=== PATIENT | female | born 1975 | race Hispanic/Latino ===

== ENCOUNTER 2019-08-19 13:30 | Emergency (ER) | payer SELFPAY ==
[2019-08-19] MEDS ORDERED: TETANUS & DIPHTHERIA TOX,ADULT 0.5 ML VIAL ONE (14:04)
[2019-08-19] MEDS ORDERED: HYDROCODONE/APAP 10/325 TAB ONE (14:04)
--- NOTE | 2019-08-19 14:54 | RAD REPORT ---
EXAM DESCRIPTION: RAD - Foot Left 3 View - 08/19/2019 2:46 pm CLINICAL HISTORY: Left Foot pain FINDINGS: Nondisplaced fractures second and third terminal annamarie. No dislocation
--- NOTE | 2019-08-19 15:17 | ER ---
Nurse's Notes [facility] Name: Tiana Garcia Age: 43 yrs Sex: Female : 1975 Arrival Date: 08/19/2019 Time: 13:31 Bed 15 Private MD: Diagnosis: Displaced fracture of left second and third toe tuft;Subungual hematoma Presentation: 08/18 13:38 Chief complaint: Patient states: Dropped heavy furniture on left foot yesterday. ll1 Abrasions noted to 2nd and 3rd digit nailbeds. Coronavirus screen: Proceed with normal triage. Patient denies a cough. Patient denies shortness of breath or difficulty breathing. Patient denies measured and/or subjective temperature greater than 100.4F prior to today's visit. Patient denies travel on a cruise ship or to a country the [facility] currently lists as an affected area. Patient denies contact with known and/or suspected case of COVID-19. Ebola Screen: Patient denies travel to an Ebola-affected area in the 21 days before illness onset. Initial Sepsis Screen: Does the patient meet any 2 criteria? HR > 90 bpm. No. Patient's initial sepsis screen is negative. Does the patient have a suspected source of infection? No. Patient's initial sepsis screen is negative. Risk Assessment: Do you want to hurt yourself or someone else? Patient reports no desire to harm self or others. Onset of symptoms was August 18, 2019. 13:38 Method Of Arrival: Wheelchair ll1 13:38 Acuity: JUANIS 4 ll1 Historical: - Allergies: 13:41 PENICILLINS; ll1 - PMHx: 13:41 Diabetes - NIDDM; ll1 - PSHx: 13:41 ; Tonsillectomy; ll1 - Social history:: Smoking status: Patient denies any tobacco usage or history of. Patient/guardian denies using alcohol, street drugs, tobacco products. Screenin:15 Fall Risk None identified. 19:30 Abuse screen: Denies threats or abuse. Nutritional screening: No deficits noted. Tuberculosis screening: No symptoms or risk factors identified. Assessment: 13:45 General: Appears uncomfortable, Behavior is calm, cooperative. Pain: Complains of pain ah in left first toe, left second toe and left third toe Pain does not radiate. Pain currently is 8 out of 10 on a pain scale. Quality of pain is described as throbbing, Pain began 1 day ago. Is continuous, Alleviated by nothing. Neuro: Level of Consciousness is awake, alert, Oriented to person, place, time, situation. Cardiovascular: Heart tones S1 S2 present Capillary refill < 3 seconds Patient's skin is warm and dry. Respiratory: Airway is patent Respiratory effort is even, unlabored. GI: No signs and/or symptoms were reported involving the gastrointestinal system. : No signs and/or symptoms were reported regarding the genitourinary system. EENT: No signs and/or symptoms were reported regarding the EENT system. Derm: No signs and/or symptoms reported regarding the dermatologic system. Musculoskeletal: Circulation, motion, and sensation intact. Capillary refill < 3 seconds, Swelling present in left second toe and left third toe. Injury Description: Crush injury sustained to left first toe, left second toe and left third toe is discolored and abrasion noted inbetween 2nd and 3rd toes. 13:50 Reassessment: Soaked foot in iodine and NS for 20 mins. ah 14:15 Reassessment: Foot out of soak and cleaned and dried. Awaiting xray. ah 15:15 Reassessment: Pt responded well to norco. Pain is decreased. Vital Signs: 13:38 BP 115 / 84; Pulse 96; Resp 17; Temp 98.7; Pulse Ox 98% ; Pain 6/10; ll1 ED Course: 13:31 Patient arrived in ED. ag5 13:33 Gem[facility] Del[facility]C [facility]. kb 13:33 Isaias Baldwin MD is Attending Physician. kb 13:40 Triage completed. ll1 13:41 Arm band placed on Patient placed in an exam room, on a stretcher. ll1 13:55 Roslyn Mccall, RN is Primary Nurse. ah 14:47 Foot Left 3 View XRAY In Process Unspecified. EDMS 15:15 Wound care: to abrasion, located on left third toe and left second toe was soaked in jp3 normal saline solution, irrigated with normal saline. 15:30 Patient has correct armband on for positive identification. Call light in reach. Side rails up X 1. 15:30 No provider procedures requiring assistance completed. Patient did not have IV access during this emergency room visit. 15:45 Ortho shoe applied to left foot. jp3 Administered Medications: 14:00 Drug: Tetanus-Diphtheria Toxoid Adult 0.5 ml {Blank Driller: [employer]umator. Exp: 05/30/2021. Lot #: [id number]. } Route: IM; Site: right deltoid; 15:00 Follow up: Response: No adverse reaction 14:00 Drug: Zaleski 10 mg-325 mg 1 tabs Route: PO; 15:00 Follow up: Response: No adverse reaction; RASS: Alert and Calm (0) 15:50 Drug: Bactrim (160 mg-800 mg (DS) 1 tablet Route: PO; 16:50 Follow up: Response: No adverse reaction Outcome: 15:16 Discharge ordered by . anita 15:45 Discharged to home ambulatory. 15:45 Condition: stable 15:45 Discharge instructions given to patient, Instructed on discharge instructions, follow up and referral plans. 17:07 Patient left the ED. ph Signatures: Dispatcher [employer] EDMS Gemma Delgado, AUTOMATIC EDGERAnjana MARQUEZP-Shelby Sung, RN RN Ronni Mahoney jp3 Mar Ernandez5 Roslyn Mccall, RN RN Jose Daniel Ricci RN RN ll1
--- NOTE | 2019-08-19 15:17 | EDPHYS ---
Physician Documentation [facility] Name: Tiana Garcia Age: 43 yrs Sex: Female : 1975 Arrival Date: 08/19/2019 Time: 13:31 Bed 15 Private MD: ED Physician Isaias Baldwin HPI: 08/18 15:12 This 43 yrs old Female presents to ER via Wheelchair with complaints of Crush kb Injury To Foot. 15:12 The patient presents with a contusion, an injury, pain, that is acute, swelling, kb tenderness. The complaints affect the left third toe and left second toe. Context: The problem was sustained at home, resulted from a heavy object falling, furniture or furniture accessory, the patient can fully bear weight, the patient is able to ambulate. Onset: The symptoms/episode began/occurred just prior to arrival. Modifying factors: The symptoms are alleviated by nothing, the symptoms are aggravated by weight bearing, movement. Associated signs and symptoms: The patient has no apparent associated signs or symptoms. Severity of symptoms: At their worst the symptoms were moderate, in the emergency department the symptoms are unchanged. The patient has not experienced similar symptoms in the past. The patient has not recently seen a physician. Pt reports she was moving furniture and a shelf fell out of the dresser and landed on toes. Historical: - Allergies: 13:41 PENICILLINS; ll1 - PMHx: 13:41 Diabetes - NIDDM; ll1 - PSHx: 13:41 ; Tonsillectomy; ll1 - Social history:: Smoking status: Patient denies any tobacco usage or history of. Patient/guardian denies using alcohol, street drugs, tobacco products. ROS: 15:09 Constitutional: Negative for fever, chills, and weight loss, ENT: Negative for injury, kb pain, and discharge, Neck: Negative for injury, pain, and swelling, Cardiovascular: Negative for chest pain, palpitations, and edema, Respiratory: Negative for shortness of breath, cough, wheezing, and pleuritic chest pain, Abdomen/GI: Negative for abdominal pain, nausea, vomiting, diarrhea, and constipation, Neuro: Negative for headache, weakness, numbness, tingling, and seizure. 15:09 MS/extremity: Positive for injury or acute deformity, contusion, ecchymosis, pain, swelling, tenderness, of the left third toe and left second toe. Exam: 15:09 Constitutional: This is a well developed, well nourished patient who is awake, alert, kb and in no acute distress. Head/Face: Normocephalic, atraumatic. Chest/axilla: Normal chest wall appearance and motion. Nontender with no deformity. No lesions are appreciated. Cardiovascular: Regular rate and rhythm with a normal S1 and S2. No gallops, murmurs, or rubs. Normal PMI, no JVD. No pulse deficits. Respiratory: Lungs have equal breath sounds bilaterally, clear to auscultation and percussion. No rales, rhonchi or wheezes noted. No increased work of breathing, no retractions or nasal flaring. Abdomen/GI: Soft, non-tender, with normal bowel sounds. No distension or tympany. No guarding or rebound. No evidence of tenderness throughout. Neuro: Awake and alert, GCS 15, oriented to person, place, time, and situation. Cranial nerves II-XII grossly intact. Motor strength 5/5 in all extremities. Sensory grossly intact. Cerebellar exam normal. Normal gait. 15:09 Musculoskeletal/extremity: Extremities: grossly normal except: noted in the left third toe and left second toe: decreased ROM, pain, swelling, tenderness, ROM: limited active range of motion due to pain, in the left third toe and left second toe, Circulation is intact in all extremities. Sensation intact. Weight bearing: able to fully bear weight. 15:17 Musculoskeletal/extremity: Nails: Subungual hematoma, of the left third toe. kb Vital Signs: 13:38 BP 115 / 84; Pulse 96; Resp 17; Temp 98.7; Pulse Ox 98% ; Pain 6/10; ll1 MDM: 13:39 Patient medically screened. kb 14:58 Data reviewed: vital signs, nurses notes. Data interpreted: Pulse oximetry: on room air kb is 98 %. Interpretation: normal. Counseling: I had a detailed discussion with the patient and/or guardian regarding: the historical points, exam findings, and any diagnostic results supporting the discharge/admit diagnosis, radiology results, the need for outpatient follow up, a orthopedic surgeon, to return to the emergency department if symptoms worsen or persist or if there are any questions or concerns that arise at home. 15:17 ED course: Pt refused drainage of subungual hematoma. kb 08/18 13:48 Order name: Foot Left 3 View XRAY; Complete Time: 14:58 kb 08/18 13:49 Order name: Misc. Order: soak foot in betadine/ns mixture for 20 min; Complete Time: kb 13:55 08/18 15:15 Order name: Post-op shoe; Complete Time: 16:01 kb Administered Medications: 14:00 Drug: Tetanus-Diphtheria Toxoid Adult 0.5 ml {Drying Machine Operator Package Yarns: [employer]. Exp: 05/30/2021. Lot #: [id number]. } Route: IM; Site: right deltoid; 15:00 Follow up: Response: No adverse reaction 14:00 Drug: O'Brien 10 mg-325 mg 1 tabs Route: PO; 15:00 Follow up: Response: No adverse reaction; RASS: Alert and Calm (0) 15:50 Drug: Bactrim (160 mg-800 mg (DS) 1 tablet Route: PO; 16:50 Follow up: Response: No adverse reaction Disposition: 19:10 Co-signature as Attending Physician, Isaias Baldwin MD Available for consultation in ps1 the ED. . Disposition: 08/19/19 15:16 Discharged to Home. Impression: Displaced fracture of left second and third toe tuft, Subungual hematoma. - Condition is Stable. - Discharge Instructions: Toe Fracture, [id number], Subungual Hematoma, [id number]. - Prescriptions for Diclofenac Sodium 75 mg Oral Tablet, Delayed Release (E.C.) - take 1 tablet by ORAL route 2 times per day As needed; 30 tablet. Bactrim DS 800- 160 mg Oral Tablet - take 1 tablet by ORAL route every 12 hours for 7 days; 14 tablet. - Medication Reconciliation Form, Thank You Letter, Antibiotic Education, Prescription Opioid Use form. - Follow up: Emergency Department; When: As needed; Reason: Worsening of condition. Follow up: Private Physician; When: 2 - 3 days; Reason: Recheck today's complaints, Continuance of care, Re-evaluation by your physician. Signatures: [facility]patcher [facility] Gemma Delgado, LEANNE-C LEANNE-Shelby Sung RN RN ph Baldwin, MD MD yen Esparza Amy, RN RN Jose Daniel Ricci RN RN ll1 Corrections: (The following items were deleted from the chart) 17:07 15:16 08/19/2019 15:16 Discharged to Home. Impression: Displaced fracture of left ph second and third toe tuft; Subungual hematoma. Condition is Stable. Forms are Medication Reconciliation Form, Thank You Letter, Antibiotic Education, Prescription Opioid Use. Follow up: Emergency Department; When: As needed; Reason: Worsening of condition. Follow up: Private Physician; When: 2 - 3 days; Reason: Recheck today's complaints, Continuance of care, Re-evaluation by your physician. kb
[2019-08-19] MEDS ORDERED: SMZ./TMP. 800/160 MG TABLET ONE (15:42)
[2019-08-19 17:24] VITALS: BP 115/84; TEMP 98.7; O2SAT 98
== END 2019-08-19 17:07 | disposition home or self-care (01) ==
LOC: ER 13:30
DX: S92.502A Displaced unspecified fracture of left lesser toe(s), initial encounter for closed fracture (principal); S90.222A Contusion of left lesser toe(s) with damage to nail, initial encounter; W22.8XXA Striking against or struck by other objects, initial encounter; Y93.89 Activity, other specified; Y92.009 Unspecified place in unspecified non-institutional (private) residence as the place of occurrence of the external cause; Z88.0 Allergy status to penicillin
CPT/HCPCS: 90471; 90714; 99284

== ENCOUNTER 2020-02-05 17:03 | Emergency (ER) | payer SELFPAY ==
[2020-02-05 18:18] LABS: Absolute Lymphocytes (CBC) 1.9 K/uL (0.7-4.9); Basophils % 0.5 % (0-1.3); Hematocrit 39.7 % (36.0-45.0); Lymphocytes % 24.2 % (15.3-44.8); MPV 10.5 fL (7.6-11.3); RBC Red Blood Cell Count 4.67 M/uL (3.86-4.86)
[2020-02-05 18:19] LABS: Protime INR 0.98
[2020-02-05 18:32] LABS: ALT/SGPT 26 U/L (12-78); AST/SGOT 13 U/L (15-37); Albumin 3.4 g/dL (3.4-5.0); Alkaline Phosphatase 85 U/L (45-117); BUN Blood Urea Nitrogen 17 mg/dL (7-18); Bicarbonate 25 mmol/L (21-32); Bilirubin Direct < 0.1 mg/dL (0-0.2); Bilirubin Total 0.3 mg/dL (0.2-1.0); Glucose Level 123 mg/dL (74-106); NT PRO-BNP 18 pg/mL (<125); Potassium 3.7 mmol/L (3.5-5.1); Protein, Total 7.3 g/dL (6.4-8.2); Sodium Level 143 mmol/L (136-145); Troponin (Emerg Dept Use Only) < 0.02 ng/mL (0.0-0.045)
--- NOTE | 2020-02-05 19:00 | RAD REPORT ---
EXAM DESCRIPTION: RAD - Chest Single View - 02/05/2020 6:42 pm CLINICAL HISTORY: CHEST PAIN Chest pain. COMPARISON: No comparisons FINDINGS: Portable technique limits examination quality. The lungs are grossly clear. The heart is normal in size. No displaced fractures. IMPRESSION: No acute intrathoracic process suspected.
--- NOTE | 2020-02-05 19:33 | ER ---
Nurse's Notes [facility] Name: Tiana Garcia Age: 44 yrs Sex: Female : 1975 Arrival Date: 02/05/2020 Time: 17:04 Bed 16 Private MD: Diagnosis: Palpitations Presentation: 02/04 17:15 Chief complaint: Substernal chest pain that radiates to right neck and upper back since this morning. 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 Coronavirus screen: At this time, the client does not indicate any symptoms associated with coronavirus-19. Ebola Screen: No symptoms or risks identified at this time. Initial Sepsis Screen: Does the patient meet any 2 criteria? No. Patient's initial sepsis screen is negative. Does the patient have a suspected source of infection? No. Patient's initial sepsis screen is negative. Risk Assessment: Do you want to hurt yourself or someone else? Patient reports no desire to harm self or others. Onset of symptoms was February 05, 2020. 17:15 Method Of Arrival: Ambulatory hb 17:15 Acuity: JUANIS 3 hb MARKET REPORTER: 20:45 LMP 01/09/2020 ca1 Historical: - Allergies: 17:18 PENICILLINS; hb - PMHx: 17:18 Diabetes - NIDDM; hb - PSHx: 17:18 ; Tonsillectomy; hb - Immunization history:: Adult Immunizations up to date. - Social history:: Smoking status: Patient denies any tobacco usage or history of. Screenin:25 Abuse screen: Denies threats or abuse. Denies injuries from another. Nutritional ca1 screening: No deficits noted. Tuberculosis screening: No symptoms or risk factors identified. Fall Risk IV access (20 points). Assessment: 17:25 General: Appears in no apparent distress. comfortable, Behavior is calm, cooperative, ca1 appropriate for age. Pain: Complains of pain in anterior aspect of right upper chest Pain radiates to right sternocleidomastoid Pain currently is 8 out of 10 on a pain scale. Pain began this morning. Neuro: Level of Consciousness is awake, alert, obeys commands, Oriented to person, place, time, situation. Cardiovascular: Heart tones S1 S2 present Capillary refill < 3 seconds Patient's skin is warm and dry. Cardiovascular: Reports palpitations. Respiratory: Airway is patent Respiratory effort is even, unlabored, Breath sounds are clear bilaterally. GI: Abdomen is round non-distended, Bowel sounds present X 4 quads. Abd is soft and non tender X 4 quads. : No signs and/or symptoms were reported regarding the genitourinary system. EENT: No signs and/or symptoms were reported regarding the EENT system. Derm: Skin is intact, is healthy with good turgor, Skin is pink, warm \T\ dry. Musculoskeletal: Circulation, motion, and sensation intact. Capillary refill < 3 seconds. 18:35 Reassessment: Patient appears in no apparent distress at this time. Patient and/or ca1 family updated on plan of care and expected duration. Pain level reassessed. Patient is alert, oriented x 3, equal unlabored respirations, skin warm/dry/pink. 19:30 Reassessment: To be discharged once IVF is completed. ca1 19:37 Reassessment: Patient appears in no apparent distress at this time. Patient and/or ca1 family updated on plan of care and expected duration. Pain level reassessed. Patient is alert, oriented x 3, equal unlabored respirations, skin warm/dry/pink. 20:45 Reassessment: Patient appears in no apparent distress at this time. Patient is alert, ca1 oriented x 3, equal unlabored respirations, skin warm/dry/pink. Vital Signs: 17:15 BP 133 / 100; Pulse 100; Resp 16; Temp 97.8; Pulse Ox 99% on R/A; Weight 90.72 kg; hb Height 5 ft. 6 in. (167.64 cm); Pain 7/10; 17:25 BP 137 / 86; Pulse 89; Resp 18 S; Pulse Ox 98% ; ca1 18:35 BP 116 / 79; Pulse 90; Resp 16 S; Pulse Ox 100% on R/A; ca1 19:38 BP 105 / 68; Pulse 82; Resp 16 S; Pulse Ox 99% on R/A; ca1 20:45 BP 105 / 67; Pulse 83; Resp 16 S; Pulse Ox 100% on R/A; ca1 17:15 Body Mass Index 32.28 (90.72 kg, 167.64 cm) hb ED Course: 17:04 Patient arrived in ED. as 17:17 Triage completed. hb 17:18 Arm band placed on. hb 17:19 Gemma Delgado [facility]-C [facility]. kb 17:19 Yossi Forbes MD is Attending Physician. kb 17:25 Patient has correct armband on for positive identification. Placed in gown. Bed in low ca1 position. Call light in reach. Side rails up X 1. green plumber on. Pulse ox on. NIBP on. Warm blanket given. 17:46 Ai Greer, RN is Primary Nurse. ca1 17:59 No provider procedures requiring assistance completed. Initial lab(s) drawn, by me, ca1 sent to lab. Inserted saline lock: 20 gauge in left antecubital area, using aseptic technique. Blood collected. Patient maintains SpO2 saturation greater than 95% on room air. 18:42 XRAY Chest (1 view) In Process Unspecified. EDMS 21:17 IV discontinued, intact, bleeding controlled, No redness/swelling at site. Pressure ca1 dressing applied. Administered Medications: 19:29 Drug: NS 0.9% 1000 ml Route: IV; Rate: 1000 ml; Site: left antecubital; ca1 21:20 Follow up: Response: No adverse reaction; IV Status: Completed infusion; IV Intake: ca1 1000ml Intake: 21:20 IV: 1000ml; Total: 1000ml. ca1 Outcome: 19:32 Discharge ordered by . kb 21:17 Discharged to home ambulatory. ca1 21:17 Condition: stable 21:17 Discharge instructions given to patient, Instructed on discharge instructions, follow up and referral plans. Demonstrated understanding of instructions, follow-up care. 21:21 Patient left the ED. ca1 Signatures: Dispatcher [employer] EDNY Gemma Delgado FNP-C FNP-Ckb Martinez, Amelia as Cris Varela, RN RN Ai Greer, YULI RN ca1
--- NOTE | 2020-02-05 19:33 | EDPHYS ---
Physician Documentation [facility] Name: Tiana Garcia Age: 44 yrs Sex: Female : 1975 Arrival Date: 02/05/2020 Time: 17:04 Bed 16 Private MD: ED Physician Yossi Forbes HPI: 02/04 18:45 This 44 yrs old Female presents to ER via Ambulatory with complaints of Chest kb Pain, Nausea/Vomiting. 18:45 The patient presents with a history of heart racing. Context: The symptoms occur drank kb 3 bangs and coffee in the past 24 hours and hasn't slept. Onset: The symptoms/episode began/occurred this morning. Duration: The patient or guardian reports a single episode. Modifying factors: The symptoms are aggravated by nothing. The symptoms are alleviated by nothing. Associated signs and symptoms: Pertinent positives: hand trembling. Severity of symptoms: At their worst the symptoms were moderate in the emergency department the symptoms have improved. The patient has not experienced similar symptoms in the past. The patient has not recently seen a physician. 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 States she stayed up today and drank another bang. Reports she hasn't slept in 24 hours, is shaky, her chest hurts and she is having palpitations.. 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 - Social history:: Smoking status: Patient denies any tobacco usage or history of. ROS: 18:44 Constitutional: Negative for fever, chills, and weight loss, ENT: Negative for injury, kb pain, and discharge, Neck: Negative for injury, pain, and swelling, Respiratory: Negative for shortness of breath, cough, wheezing, and pleuritic chest pain, Abdomen/GI: Negative for abdominal pain, nausea, vomiting, diarrhea, and constipation, Back: Negative for injury and pain, MS/Extremity: Negative for injury and deformity, Skin: Negative for injury, rash, and discoloration, Neuro: Negative for headache, weakness, numbness, tingling, and seizure. 18:44 Cardiovascular: Positive for chest pain, palpitations. Exam: 18:12 Constitutional: This is a well developed, well nourished patient who is awake, alert, kb and in no acute distress. Head/Face: Normocephalic, atraumatic. Chest/axilla: Normal chest wall appearance and motion. Nontender with no deformity. No lesions are appreciated. Cardiovascular: Regular rate and rhythm with a normal S1 and S2. No gallops, murmurs, or rubs. Normal PMI, no JVD. No pulse deficits. Respiratory: Lungs have equal breath sounds bilaterally, clear to auscultation and percussion. No rales, rhonchi or wheezes noted. No increased work of breathing, no retractions or nasal flaring. Abdomen/GI: Soft, non-tender, with normal bowel sounds. No distension or tympany. No guarding or rebound. No evidence of tenderness throughout. Skin: Warm, dry with normal turgor. Normal color with no rashes, no lesions, and no evidence of cellulitis. MS/ Extremity: Pulses equal, no cyanosis. Neurovascular intact. Full, normal range of motion. Neuro: Awake and alert, GCS 15, oriented to person, place, time, and situation. Cranial nerves II-XII grossly intact. Motor strength 5/5 in all extremities. Sensory grossly intact. Cerebellar exam normal. Normal gait. 18:12 ECG was reviewed by the Attending Physician. Vital Signs: 17:15 BP 133 / 100; Pulse 100; Resp 16; Temp 97.8; Pulse Ox 99% on R/A; Weight 90.72 kg; hb Height 5 ft. 6 in. (167.64 cm); Pain 7/10; 17:25 BP 137 / 86; Pulse 89; Resp 18 S; Pulse Ox 98% ; ca1 18:35 BP 116 / 79; Pulse 90; Resp 16 S; Pulse Ox 100% on R/A; ca1 19:38 BP 105 / 68; Pulse 82; Resp 16 S; Pulse Ox 99% on R/A; ca1 20:45 BP 105 / 67; Pulse 83; Resp 16 S; Pulse Ox 100% on R/A; ca1 17:15 Body Mass Index 32.28 (90.72 kg, 167.64 cm) hb MDM: 17:19 Patient medically screened. kb 18:13 Data reviewed: vital signs, nurses notes. Data interpreted: Pulse oximetry: on room air kb is 98 %. Interpretation: normal. 18:44 Counseling: I had a detailed discussion with the patient and/or guardian regarding: the kb historical points, exam findings, and any diagnostic results supporting the discharge/admit diagnosis, lab results, radiology results, the need for outpatient follow up, a family practitioner, to return to the emergency department if symptoms worsen or persist or if there are any questions or concerns that arise at home. 02/04 17:39 Order name: Basic Metabolic Panel; Complete Time: 18:33 kb 02/04 17:39 Order name: CBC with Diff; Complete Time: 18:30 kb 02/04 17:39 Order name: LFT's; Complete Time: 18:33 kb 02/04 17:39 Order name: Magnesium; Complete Time: 18:33 kb 02/04 17:39 Order name: NT PRO-BNP; Complete Time: 18:33 kb 02/04 17:39 Order name: PT-INR; Complete Time: 18:30 kb 02/04 17:39 Order name: Troponin (emerg Dept Use Only); Complete Time: 18:33 kb 02/04 17:39 Order name: XRAY Chest (1 view); Complete Time: 19:06 kb 02/04 17:39 Order name: EKG; Complete Time: 17:40 kb 02/04 17:39 Order name: Cardiac monitoring; Complete Time: 18:03 kb 02/04 17:39 Order name: EKG - Nurse/Tech; Complete Time: 18:03 kb 02/04 17:39 Order name: IV Saline Lock; Complete Time: 18:03 kb 02/04 17:39 Order name: Labs collected and sent; Complete Time: 18:03 kb 02/04 17:39 Order name: O2 Per Protocol; Complete Time: 18:03 kb 02/04 17:39 Order name: O2 Sat Monitoring; Complete Time: 18:03 kb EC:12 Rate is 83 beats/min. Rhythm is regular. QRS [place] is Normal. HI interval is normal at kb 158 msec. QRS interval is normal at 78 msec. QT interval is normal at 384 msec. Administered Medications: 19:29 Drug: NS 0.9% 1000 ml Route: IV; Rate: 1000 ml; Site: left antecubital; ca1 21:20 Follow up: Response: No adverse reaction; IV Status: Completed infusion; IV Intake: ca1 1000ml Disposition: 02/05 14:34 Co-signature as Attending Physician, Yossi Forbes MD I agree with the assessment and kdr plan of care. Disposition: 02/05/20 19:32 Discharged to Home. Impression: Palpitations. - Condition is Stable. - Discharge Instructions: Palpitations, [id number]. - Medication Reconciliation Form, Thank You Letter, Antibiotic Education, Prescription Opioid Use, Work release form form. - Follow up: Private Physician; When: 2 - 3 days; Reason: Recheck today's complaints, Continuance of care, Re-evaluation by your physician. Follow up: Emergency Department; When: As needed; Reason: Worsening of condition. Signatures: Dispatcher [employer] EDMS Gemma Delgado, TELEVISION INSPECTOR-C TELEVISION INSPECTOR-Yossi Cyr MD MD [facility] Cris Varela RN RN Ai Greer RN RN ca1 Corrections: (The following items were deleted from the chart) 02/04 21:21 19:32 02/05/2020 19:32 Discharged to Home. Impression: Palpitations. Condition is ca1 Stable. Forms are Medication Reconciliation Form, Thank You Letter, Antibiotic Education, Prescription Opioid Use. Follow up: Private Physician; When: 2 - 3 days; Reason: Recheck today's complaints, Continuance of care, Re-evaluation by your physician. Follow up: Emergency Department; When: As needed; Reason: Worsening of condition. kb
[2020-02-05] MEDS ORDERED: NA CHLORIDE 0.9% 1,000 ML ONE (19:40)
[2020-02-05 22:02] VITALS: TEMP 97.8
[2020-02-05 22:14] VITALS: BP 105/67; O2SAT 100
--- NOTE | 2020-02-07 09:35 | EKG ---
Test Date: 2020-02-05 Test Time: 18:05:38 Service Department Manager: STEPHEN MEASUREMENT RESULTS: Intervals: Rate: 83 IN: 158 QRSD: 78 QT: 384 QTc: 451 [place]: P: 35 IN: 158 QRS: 37 T: 41 INTERPRETIVE STATEMENTS: Normal sinus rhythm Normal ECG No previous ECG available for comparison Electronically Signed On 02-07-20 09:31:21 CDT by Roderick Lugo
== END 2020-02-05 21:21 | disposition home or self-care (01) ==
LOC: ER 17:03
DX: R00.2 Palpitations (principal); E11.9 Type 2 diabetes mellitus without complications; Z88.0 Allergy status to penicillin
CPT/HCPCS: 36415; 71045; 80048; 80076; 83735; 83880; 84484; 85025; 85610; 93005; 96360; 96361; 99285; J7030

== ENCOUNTER 2020-08-08 12:18 | Emergency (ER) | payer SELFPAY ==
--- NOTE | 2020-08-08 15:16 | ER ---
Nurse's Notes [facility] Name: Tiana Manriquez Age: 44 yrs Sex: Female : 1975 Arrival Date: 08/08/2020 Time: 12:20 Bed Waiting Private MD: Diagnosis: Presentation: 08/08 12:26 Chief complaint: Patient states: L lower back pain for 1 week, more severe the past two ll1 days. Pain increases with certain movements. Pain radiates down L leg. Coronavirus screen: Client denies travel out of the [place] in the last 14 days. At this time, the client does not indicate any symptoms associated with coronavirus-19. Ebola Screen: Patient denies travel to an Ebola-affected area in the 21 days before illness onset. Initial Sepsis Screen: Does the patient meet any 2 criteria? No. Patient's initial sepsis screen is negative. Does the patient have a suspected source of infection? No. Patient's initial sepsis screen is negative. Risk Assessment: Do you want to hurt yourself or someone else? Patient reports no desire to harm self or others. Onset of symptoms was July 02, 2020. 12:26 Method Of Arrival: Ambulatory ll1 12:26 Acuity: JUANIS 4 ll1 Historical: - Allergies: 12:30 PENICILLINS; ll1 - PMHx: 12:30 Diabetes - NIDDM; ll1 - PSHx: 12:30 ; Tonsillectomy; ll1 - Immunization history:: Client reports having NOT received the Covid vaccine. Flu vaccine is not up to date. - Social history:: Smoking status: Patient denies any tobacco usage or history of. Vital Signs: 12:26 BP 123 / 91; Pulse 86; Resp 16; Temp 98.4; Pulse Ox 99% ; Weight 95.25 kg; Height 5 ft. ll1 6 in. (167.64 cm); Pain 10/10; 12:26 Body Mass Index 33.89 (95.25 kg, 167.64 cm) ll1 ED Course: 12:20 Patient arrived in ED. ds1 12:29 Triage completed. ll1 12:30 Arm band placed on. ll1 14:26 [facility] dianelys 14:26 Suhas Cortez MD is Attending Physician. dianelys Administered Medications: No medications were administered Outcome: 15:13 Eloped from waiting room, before seeing physician 15:13 unknown 15:15 Patient left the ED. Signatures: Bashir Torres PA PA jmm Sanford, Demi ds1 Ashley Manzano, RN RN ss Jose Daniel Royal RN RN ll1
--- NOTE | 2020-08-08 15:16 | EDPHYS ---
Physician Documentation [facility] Name: Tiana Manriquez Age: 44 yrs Sex: Female : 1975 Arrival Date: 08/08/2020 Time: 12:20 Bed Waiting Private MD: SANDRA Physician Historical: - Allergies: 08/08 12:30 PENICILLINS; ll1 - PMHx: 12:30 Diabetes - NIDDM; ll1 - PSHx: 12:30 ; Tonsillectomy; ll1 - Immunization history:: Client reports having NOT received the Covid vaccine. Flu vaccine is not up to date. - Social history:: Smoking status: Patient denies any tobacco usage or history of. Vital Signs: 12:26 BP 123 / 91; Pulse 86; Resp 16; Temp 98.4; Pulse Ox 99% ; Weight 95.25 kg; Height 5 ft. ll1 6 in. (167.64 cm); Pain 10/10; 12:26 Body Mass Index 33.89 (95.25 kg, 167.64 cm) ll1 Administered Medications: No medications were administered Disposition: 08/08/20 15:15 Patient left the facility before being seen by provider. - Patient left due to (see nurse's notes). Signatures: Bashir Torres PA PA jmm Smirch, Shelby, RN RN Jose Daniel Lewis RN RN ll1 Corrections: (The following items were deleted from the chart) 14:38 14:32 Patient medically screened. dianelys ivory
[2020-08-08 15:19] VITALS: BP 123/91; TEMP 98.4; O2SAT 99
== END 2020-08-08 15:15 | disposition left against medical advice (07) ==
LOC: ER 12:18
DX: Z53.21 Procedure and treatment not carried out due to patient leaving prior to being seen by health care provider (principal)
CPT/HCPCS: 99281

== ENCOUNTER 2021-09-03 11:45 | Emergency (ER) | payer SELFPAY ==
[2021-09-03 12:28] LABS: Urine Blood Negative (Negative); Urine Glucose Negative (Negative); Urine Protein Negative (Negative); Urine Specific Gravity >=1.030 (1.005-1.030); Urine pH 5.5 (5.0-7.0)
[2021-09-03 13:00] LABS: Absolute Lymphocytes (CBC) 1.8 K/uL (0.7-4.9); Hematocrit 44.4 % (36.0-45.0); Lymphocytes % 16.4 % (15.3-44.8); MPV 8.7 fL (7.6-11.3); RBC Red Blood Cell Count 5.25 M/uL (3.86-4.86)
[2021-09-03] MEDS ORDERED: NA CHLORIDE 0.9% 1,000 ML ONE (13:13)
[2021-09-03] MEDS ORDERED: ONDANSETRON 4 MG/2 ML VIAL ONE ×2 (13:13→14:31)
[2021-09-03] MEDS ORDERED: KETOROLAC 30 MG/ML INJ ONE (13:13)
[2021-09-03] MEDS ORDERED: FAMOTIDINE 20 MG/2 ML VIAL IV ONE (13:15)
--- NOTE | 2021-09-03 13:25 | RAD REPORT ---
EXAM DESCRIPTION: CT - Stone Protocol - 09/03/2021 12:58 pm CLINICAL HISTORY: Flank pain. Flank pain, kidney stone suspected COMPARISON: No comparisons TECHNIQUE: Axial images were obtained without oral or IV contrast. Lack of contrast limits solid org an and vascular assessment. The [id number] spans the entirety of the system partially obscuring uppermost abdomen and lung bases. Coronal reformatted images were obtained and reviewed. All CT scans are performed using dose optimization technique as appropriate and may include automated exposure control or mA/KV adjustment according to patient size. FINDINGS: The lower lung ball are clear. Large gallstone in the gallbladder. Imaged portions of the liver and spleen show no suspicious findings on non-contrast imaging. The panc reas and adrenal glands are normal. No pathologic lymphadenopathy in the abdomen or pelvis. Small fat containing umbilical hernia. No urinary tract stones or obstructive uropathy. No bowel obstruction, free air, free fluid or abscess. Normal appendix noted. No significant bony abnormality. IMPRESSION: No urinary tract stones or obstructive uropathy. Cholelithiasis with gallbladder distention.
[2021-09-03] MEDS ORDERED: CEFTRIAXONE 1000 MG/VIAL ONE (13:40)
[2021-09-03] MEDS ORDERED: NA CHLORIDE 0.9% 50 ML ONE (13:40)
[2021-09-03 13:50] LABS: Albumin 3.7 g/dL (3.4-5.0); Bilirubin Total 0.4 mg/dL (0.2-1.0); Potassium 4.1 mmol/L (3.5-5.1); Protein, Total 7.8 g/dL (6.4-8.2)
[2021-09-03 13:51] LABS: Urine Bacteria >50 /HPF (<20); Urine RBC <5 /HPF (NONE SEEN)
[2021-09-03] MEDS ORDERED: MORPHINE 4 MG/ML SYR ONE (14:23)
--- NOTE | 2021-09-03 14:37 | RAD REPORT ---
EXAM DESCRIPTION: US - Abdomen Exam Limited - 09/03/2021 2:26 pm CLINICAL HISTORY: right flank pain COMPARISON: No comparisons FINDINGS: The gallbladder demonstrates multiple shadowing stones. No pericholecystic fluid or gallbl adder wall thickening. The common bile duct is normal measuring 4 mm. The liver demonstrates no findings of intrahepatic biliary dilatation. IMPRESSION: Cholelithiasis.
--- NOTE | 2021-09-03 15:32 | EDPHYS ---
Physician Documentation [facility] Name: Tiana Manriquez Age: 46 yrs Sex: Female : 1975 Arrival Date: 09/03/2021 Time: 11:47 Bed 12 Private MD: ED Physician Jarrod Hsu HPI: 09/03 13:00 This 46 yrs old Female presents to ER via Ambulatory with complaints of Back cp Pain, Flank Pain. 13:00 The patient presents with pain that is acute, with no known mechanism of injury. The cp symptoms are located in the low back. Onset: The symptoms/episode began/occurred 2 day(s) ago. 13:00 Associated signs and symptoms: Pertinent positives: nausea, vomiting. cp 13:00 Severity of symptoms: in the emergency department the symptoms are unchanged, despite cp home interventions. 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 - Social history:: Smoking status: . ROS: 13:05 Constitutional: Negative for body aches, chills, fever, poor PO intake. cp 13:05 Cardiovascular: Negative for chest pain, palpitations. cp 13:05 Respiratory: Negative for cough, shortness of breath, wheezing. 13:05 Back: Positive for pain at rest, pain with movement, flank pain, on the right. 13:05 : Positive for urinary symptoms, Negative for vaginal bleeding, vaginal discharge. 13:05 Neuro: Negative for altered mental status, dizziness, headache, weakness. 13:05 All other systems are negative. cp Exam: 13:20 Constitutional: The patient appears in no acute distress, alert, awake, non-toxic, well cp developed, well nourished, uncomfortable. 13:20 Head/Face: Normocephalic, atraumatic. cp 13:20 Eyes: Periorbital structures: appear normal, Conjunctiva: normal, no exudate, no injection, Sclera: no appreciated abnormality, Lids and lashes: appear normal, bilaterally. 13:20 ENT: External ear(s): are unremarkable, Nose: is normal, Mouth: Lips: moist, Oral mucosa: pink and intact, moist, Posterior pharynx: Airway: no evidence of obstruction, patent. 13:20 Chest/axilla: Inspection: normal. 13:20 Cardiovascular: Rate: tachycardic, Rhythm: regular, Edema: is not appreciated, JVD: is not appreciated. 13:20 Respiratory: the patient does not display signs of respiratory distress, Respirations: normal, no use of accessory muscles, no retractions, labored breathing, is not present, Breath sounds: are clear throughout, no decreased breath sounds, no stridor, no wheezing. 13:20 Abdomen/GI: Inspection: abdomen appears normal, Bowel sounds: active, all quadrants, Palpation: soft, in all quadrants, moderate abdominal tenderness, in the epigastric area and right upper quadrant, rebound tenderness, is not appreciated, involuntary guarding, is not appreciated. 13:20 Back: pain, that is moderate, of the right mid back, ROM is painful, with all movement. 13:20 Skin: cellulitis, is not appreciated, no rash present. 13:20 Neuro: Orientation: to person, place \T\ time. Mentation: is normal, Motor: moves all fours, strength is normal, Sensation: is normal, Gait: is steady, at a normal pace, without difficulty. Vital Signs: 12:08 BP 117 / 90; Pulse 105; Resp 16; Temp 98.1; Pulse Ox 98% on R/A; Weight 100.24 kg; iw Height 5 ft. 5 in. (165.10 cm); Pain 8/10; 12:08 Body Mass Index 36.78 (100.24 kg, 165.10 cm) iw MDM: 12:59 Patient medically screened. cp 13:00 Differential diagnosis: Cholelithiasis UTI,pyelonephritis, kidney stone. cp 15:30 Data reviewed: vital signs, nurses notes, lab test result(s), radiologic studies, CT cp scan, ultrasound. 15:30 Counseling: I had a detailed discussion with the patient and/or guardian regarding: the cp historical points, exam findings, and any diagnostic results supporting the discharge/admit diagnosis, lab results, radiology results, the need for outpatient follow up, a general surgeon, to return to the emergency department if symptoms worsen or persist or if there are any questions or concerns that arise at home. 09/03 12:29 Order name: Urine Dipstick-Ancillary; Complete Time: 12:38 EDMO 09/03 13:29 Interpretation: Normal except: U NIT Positive; UESTR 1+. 09/03 12:40 Order name: CBC with Diff; Complete Time: 13:28 09/03 13:29 Interpretation: Normal except: RBC 5.25; IDA% 74.2. 09/03 12:40 Order name: CMP; Complete Time: 14:15 09/03 14:15 Interpretation: Normal except: GLUC 112; GLOB 4.1; A/G 0.9. 09/03 12:40 Order name: Lipase; Complete Time: 14:15 09/03 14:16 Interpretation: Reviewed. 09/03 12:40 Order name: Urine Microscopic Only; Complete Time: 14:15 09/03 14:16 Interpretation: Normal except: UWBC 10-20; UBACT >50. 09/03 12:40 Order name: CT Stone Protocol; Complete Time: 13:28 09/03 13:31 Order name: US Abdomen Limited: RUQ/epigastric; Complete Time: 14:42 09/03 14:42 Interpretation: Report reviewed. 09/03 13:53 Order name: Urine Culture [facility] 09/03 12:40 Order name: IV Saline Lock; Complete Time: 12:58 09/03 12:40 Order name: Labs collected and sent; Complete Time: 12:58 09/03 12:40 Order name: Urine Dipstick-Ancillary (obtain specimen); Complete Time: 12:58 09/03 12:40 Order name: Urine Test (obtain specimen); Complete Time: 13:07 09/03 13:05 Order name: Labs - recollect needed; Complete Time: 13:25 09/03 15:20 Order name: PO challenge; Complete Time: 15:42 cp Administered Medications: 13:18 Drug: Zofran (Ondansetron) 4 mg Route: IVP; Site: right antecubital; ss 15:27 Follow up: Response: No adverse reaction ss 13:20 Drug: NS 0.9% 1000 ml Route: IV; Rate: 1 bolus; Site: right antecubital; ss 13:22 Drug: Pepcid (famotidine) 20 mg Route: IVP; Site: right antecubital; ss 15:27 Follow up: Response: No adverse reaction ss 13:23 Drug: Ketorolac 15 mg Route: IVP; Site: right antecubital; ss 15:27 Follow up: Response: No adverse reaction; Pain is decreased ss 13:39 Drug: Rocephin - (cefTRIAXone) 1 grams Route: IVPB; Infused Over: 30 mins; Site: right ss antecubital; 14:22 Drug: morphine 4 mg Route: IVP; Site: right antecubital; iw 15:24 Follow up: Response: No adverse reaction; Pain is decreased ss 14:29 Drug: Zofran (Ondansetron) 4 mg Route: IVP; Site: right antecubital; iw 15:24 Follow up: Response: No adverse reaction; Nausea is decreased ss Disposition Summary: 09/03/21 15:31 Discharge Ordered Location: Home cp Problem: new cp Symptoms: have improved cp Condition: Stable cp Diagnosis - UTI/ Urinary tract infection, site not specified cp - Other cholelithiasis without obstruction cp Followup: cp - With: Jayson Grimes MD - When: 2 - 3 days - Reason: gallstones Discharge Instructions: - Discharge Summary Sheet cp - Urinary Tract Infection, Adult cp - Cholelithiasis cp Forms: - Medication Reconciliation Form cp - Thank You Letter cp - Antibiotic Education cp - Prescription Opioid Use cp Prescriptions: - Ibuprofen 800 mg Oral Tablet - take 1 tablet by ORAL route every 8 hours As needed take with food; 30 tablet; cp Refills: 0, Product Selection Permitted - Zofran 4 mg Oral Tablet - take 1 tablet by ORAL route every 12 hours As needed; 20 tablet; Refills: 0, cp Product Selection Permitted - Bactrim DS 800-160 mg Oral Tablet - take 1 tablet by ORAL route every 12 hours for 7 days; 14 tablet; Refills: 0, cp Product Selection Permitted - dicyclomine 20 mg Oral Tablet - take 1 tablet by ORAL route 4 times per day; 30 tablet; Refills: 0, Product cp Selection Permitted Signatures: Dispatcher [employer] Selena Delaney RN RN iw Ashley Manzano RN RN ss Patrick Garcia PA PA cp Corrections: (The following items were deleted from the chart) 14:15 14:15 Normal except: GLUC 112. cp cp 14:50 13:00 The symptoms are located in the right flank, cp cp 05/22 12:57 09/03 14:50 Associated signs and symptoms: Pertinent positives: nausea, vomiting, cp cp
--- NOTE | 2021-09-03 15:32 | ER ---
Nurse's Notes [facility] Name: Tiana Manriquez Age: 46 yrs Sex: Female : 1975 Arrival Date: 09/03/2021 Time: 11:47 Bed 12 Private MD: Diagnosis: UTI/ Urinary tract infection, site not specified;Other cholelithiasis without obstruction Presentation: 09/03 12:08 Chief complaint: Patient states: has a constant pain in right kidney that started 2 iw days ago, cloudy urine with a foul odor. Coronavirus screen: At this time, the client does not indicate any symptoms associated with coronavirus-19. Ebola Screen: Patient negative for fever greater than or equal to 101.5 degrees Fahrenheit, and additional compatible Ebola Virus Disease symptoms Patient denies exposure to infectious person. Patient denies travel to an Ebola-affected area in the 21 days before illness onset. No symptoms or risks identified at this time. Initial Sepsis Screen: Does the patient meet any 2 criteria? No. Patient's initial sepsis screen is negative. Does the patient have a suspected source of infection? No. Patient's initial sepsis screen is negative. Risk Assessment: Do you want to hurt yourself or someone else? Patient reports no desire to harm self or others. Onset of symptoms was September 01, 2021. 12:08 Method Of Arrival: Ambulatory iw 12:08 Acuity: JUANIS 3 iw COMMUNITY SUPPORT SPECIALIST: 12:10 LMP 08/14/2021 iw Historical: - Allergies: 12:10 PENICILLINS; iw - PMHx: 12:10 Diabetes - NIDDM; iw - Immunization history:: Client reports receiving the 2nd dose of the Covid vaccine. - Social history:: Smoking status: . Screenin:57 Abuse screen: Denies threats or abuse. Denies injuries from another. Nutritional iw screening: No deficits noted. Tuberculosis screening: No symptoms or risk factors identified. Fall Risk None identified. Assessment: 12:56 General: Appears in no apparent distress. Behavior is calm, cooperative. Pain: iw Complains of pain in left low back and left mid back. Neuro: Level of Consciousness is awake, alert, obeys commands, Oriented to person, place, time, situation, Moves all extremities. Full function. Respiratory: Respiratory effort is even, unlabored, Respiratory pattern is regular. : Reports pain in left flank(s), with urination. Derm: Skin is intact, is healthy with good turgor. 15:09 Reassessment: Patient appears in no apparent distress at this time. Patient and/or ss family updated on plan of care and expected duration. Pain level reassessed. Patient is alert, oriented x 3, equal unlabored respirations, skin warm/dry/pink. awaiting disposition. Vital Signs: 12:08 BP 117 / 90; Pulse 105; Resp 16; Temp 98.1; Pulse Ox 98% on R/A; Weight 100.24 kg; iw Height 5 ft. 5 in. (165.10 cm); Pain 8/10; 12:08 Body Mass Index 36.78 (100.24 kg, 165.10 cm) iw ED Course: 11:47 Patient arrived in ED. mr 12:10 Triage completed. iw 12:10 Arm band placed on. iw 12:25 Patrick Garcia PA is PHCP. cp 12:25 Jarrod Hsu MD is Attending Physician. cp 12:56 Selena Alas, YULI is Primary Nurse. iw 12:57 Initial lab(s) drawn, by fl, sent to lab. Inserted saline lock: 22 gauge in right iw antecubital area, using aseptic technique. Blood collected. 13:00 CT Stone Protocol In Process Unspecified. EDMS 14:28 US Abdomen Limited: RUQ/epigastric In Process Unspecified. EDMS 15:27 No provider procedures requiring assistance completed. ss 15:30 Jayson Grimes MD is Referral Physician. cp 15:42 Patient did not have IV access during this emergency room visit. ss Administered Medications: 13:18 Drug: Zofran (Ondansetron) 4 mg Route: IVP; Site: right antecubital; ss 15:27 Follow up: Response: No adverse reaction ss 13:20 Drug: NS 0.9% 1000 ml Route: IV; Rate: 1 bolus; Site: right antecubital; ss 13:22 Drug: Pepcid (famotidine) 20 mg Route: IVP; Site: right antecubital; ss 15:27 Follow up: Response: No adverse reaction ss 13:23 Drug: Ketorolac 15 mg Route: IVP; Site: right antecubital; ss 15:27 Follow up: Response: No adverse reaction; Pain is decreased ss 13:39 Drug: Rocephin - (cefTRIAXone) 1 grams Route: IVPB; Infused Over: 30 mins; Site: right ss antecubital; 14:22 Drug: morphine 4 mg Route: IVP; Site: right antecubital; iw 15:24 Follow up: Response: No adverse reaction; Pain is decreased ss 14:29 Drug: Zofran (Ondansetron) 4 mg Route: IVP; Site: right antecubital; iw 15:24 Follow up: Response: No adverse reaction; Nausea is decreased ss Outcome: 15:31 Discharge ordered by MD. cp 15:42 Discharged to home ambulatory. ss 15:42 Condition: good 15:42 Discharge instructions given to patient, family, Instructed on discharge instructions, follow up and referral plans. medication usage, Demonstrated understanding of instructions, follow-up care, medications, Prescriptions given X 4. 15:43 Patient left the ED. ss Signatures: Dispatcher [employer] [facility] AponteKeiko mr Selena Alas RN RN iw Ashley Manzano RN RN ss Patrick Garcia PA PA cp Corrections: (The following items were deleted from the chart) 15:30 15:27 Patient did not have IV access during this emergency room visit. ss ss
[2021-09-03 16:00] VITALS: BP 117/90; TEMP 98.1; O2SAT 98
== END 2021-09-03 15:43 | disposition home or self-care (01) ==
LOC: ER 11:45
DX: N39.0 Urinary tract infection, site not specified (principal); K80.80 Other cholelithiasis without obstruction; E11.9 Type 2 diabetes mellitus without complications; Z88.0 Allergy status to penicillin
CPT/HCPCS: 36415; 74176; 76377; 76705; 80053; 81003; 81015; 83690; 85025; 87077; 87086; 87088; 87186; 96374; 96375; 99284; J2405; J3490; J7030

== ENCOUNTER 2024-01-01 10:56 | Emergency (ER) | payer SELFPAY ==
[2024-01-01] MEDS ORDERED: ONDANSETRON 4 MG/2 ML VIAL ONE (11:48)
[2024-01-01] MEDS ORDERED: NA CHLORIDE 0.9% 100 ML ONE (11:48)
[2024-01-01] MEDS ORDERED: CEFTRIAXONE 2000 MG/VIAL ONE (11:48)
[2024-01-01 11:49] LABS: Absolute Eosinophils 0.1 K/uL (0-0.5); Absolute Lymphocytes (CBC) 1.7 K/uL (0.7-4.9); Absolute Monocytes 0.5 K/uL (0.1-1.3); Absolute Neutrophil 4.5 K/uL (1.8-8.0); Basophils % 0.4 % (0-1.3); Hematocrit 43.7 % (36.0-45.0); Hemoglobin 14.3 g/dL (12.0-15.0); Lymphocytes % 24.9 % (15.3-44.8); MCH 26.1 pg (27.0-35.0); MCHC 32.6 g/dL (32.0-36.0); MCV 79.8 fL (80-100); MPV 9.2 fL (7.6-11.3); Monocytes % 7.2 % (3.3-12.3); Neutrophils % 65.5 % (41.7-73.7); Nucleated Red Blood Cells % 0.1 % (0-0); Platelets 234 thou/uL (152-406); RBC Red Blood Cell Count 5.47 M/uL (3.86-4.86); Red Cell Distribution Width 14.7 % (12.1-15.2)
[2024-01-01] MEDS ORDERED: NA CHLORIDE 0.9% 1,000 ML ONE (11:49)
[2024-01-01 12:01] LABS: Specific Gravity > 1.030 (1.005-1.030)
[2024-01-01 12:05] LABS: Specific Gravity > 1.030 (1.005-1.030); Sqamous Epithelial <5 /HPF (None Seen); Urine Bacteria None Seen /HPF (<20); Urine Bilirubin NEGATIVE (Negative); Urine Blood Negative (Negative); Urine Clarity Clear (Clear); Urine Color Light-Yellow (Yellow); Urine Culture Reflex Order NOT NEEDED; Urine Glucose 4+ (Over) (Negative); Urine Ketones TRACE (Negative); Urine Microscopic Reflex YN ORDER UMIC; Urine Mucus 2+ /HPF (None Seen); Urine Nitrite NEGATIVE (Negative); Urine Protein TRACE (Negative); Urine RBC None Seen /HPF (None Seen); Urine Urobilinogen Normal (Normal); Urine WBC <5 /HPF (<5); Urine pH 5.5 (5.0-7.0)
[2024-01-01 12:05] LABS: Albumin 3.4 g/dL (3.4-5.0); Albumin/Globulin Ratio 0.7 (1.1-1.8); Anion Gap 9.9 mEq/L (5.0-15.0); Bilirubin Total 0.4 mg/dL (0.2-1.0); Globulin 4.6 g/dL (2.3-3.5); Potassium 3.9 mEq/L (3.5-5.1)
[2024-01-01] MEDS ORDERED: KETOROLAC 30 MG/ML INJ ONE (12:11)
--- NOTE | 2024-01-01 12:41 | RAD REPORT ---
EXAMINATION: CT ABDOMEN AND PELVIS WITHOUT CONTRAST CLINICAL INDICATION: Female, 48 years old. [facility] MAIN rlq/flank pain IV ONLY Bed Name: 8 TECHNIQUE: CT abdomen and pelvis was performed, without IV contrast, as per department protocol. Axia l, sagittal and coronal reconstructions were obtained. One or more of the following dose reduction techniques were used: Automated exposure control, adjustment of the mA and kV according to the patien t size, and iterative reconstruction. Unless otherwise specified, incidental findings do not require dedicated imaging follow-up. COMPARISON: 09/03/2021 FINDINGS: The lack of intravenous contrast limits the sensitivity of this exam for evaluation of solid visceral organs, vascular structures, and retroperitoneum. LOWER CHEST: The visualized lung bases are clear. LIVER: Normal in size and contour. No focal lesion. Cholelithiasis. SPLEEN: Normal size. No focal lesion. PANCREAS: No mass, ductal dilation, or dori-pancreatic fluid. ADRENALS: Normal; no mass. KIDNEYS AND URETERS: Tiny punctate calculus in the inferior left kidney. No hydronephrosis seen. URINARY BLADDER: Normal contour. GASTROINTESTINAL TRACT: No evidence of bowel obstruction, significant free fluid, free air or abscess . Small fat-containing hernia. APPENDIX: Normal appendix. LYMPH NODES: No lymphadenopathy. MUSCULOSKELETAL: No acute or suspicious osseous abnormality. ADDITIONAL FINDINGS: None. IMPRESSION: Cholelithiasis. Punctate calculus inferior left kidney without hydronephrosis.
--- NOTE | 2024-01-01 13:00 | EDPHYS ---
Physician Documentation [facility] Name: Tiana Manriquez Age: 48 yrs Sex: Female : 1975 Arrival Date: 01/01/2024 Time: 10:56 Bed 8 Private MD: ED Physician Nitin Overton HPI: 12/31 11:19 This 48 yrs old Female presents to ER via Ambulatory with complaints of rt Urinary Problem. 11:19 Patient presents to the ED with 3 weeks of dysuria. No reports of right lower quadrant rt abdominal pain that is rating to the right flank. She has associated nausea. Denies other acute complaints at this time, symptoms are moderate in severity, no other aggravating or alleviating factors.. CLINICAL SCIENCE LIAISON: 13:23 unknown cm10 Historical: - Allergies: 11:01 PENICILLINS; ll1 - PMHx: 11:01 Diabetes - NIDDM; ll1 11:08 head injury 2021; ll1 - PSHx: 11:08 Tonsillectomy; ll1 - Immunization history:: Adult Immunizations up to date. - Infectious Disease History:: Denies. - Social history:: Smoking status: Patient denies any tobacco usage or history of. - Family history:: not pertinent. ROS: 11:19 Constitutional: Negative for fever, chills, and weight loss, Cardiovascular: Negative rt for chest pain, palpitations, and edema, Respiratory: Negative for shortness of breath, cough, wheezing, and pleuritic chest pain, MS/Extremity: Negative for injury and deformity, Skin: Negative for injury, rash, and discoloration, Neuro: Negative for headache, weakness, numbness, tingling, and seizure, 11:19 Abdomen/GI: Positive for abdominal pain, nausea, 11:19 Back: Positive for flank pain, Negative for injury or acute deformity, 11:19 : Positive for Dysuria, negative for hematuria, Exam: 11:19 Constitutional: This is a well developed, well nourished patient who is awake, alert, rt and in no acute distress. Head/Face: Normocephalic, atraumatic. Chest/axilla: Normal chest wall appearance and motion. Nontender with no deformity. No lesions are appreciated. Cardiovascular: Regular rate and rhythm with a normal S1 and S2. No gallops, murmurs, or rubs. Normal PMI, no JVD. No pulse deficits. Respiratory: Lungs have equal breath sounds bilaterally, clear to auscultation and percussion. No rales, rhonchi or wheezes noted. No increased work of breathing, no retractions or nasal flaring. Abdomen/GI: Soft, non-tender, with normal bowel sounds. No distension or tympany. No guarding or rebound. No evidence of tenderness throughout. Skin: Warm, dry with normal turgor. Normal color with no rashes, no lesions, and no evidence of cellulitis. MS/ Extremity: Pulses equal, no cyanosis. Neurovascular intact. Full, normal range of motion. Neuro: Awake and alert, GCS 15, oriented to person, place, time, and situation. Cranial nerves II-XII grossly intact. Motor strength 5/5 in all extremities. Sensory grossly intact. Cerebellar exam normal. Normal gait. Vital Signs: 11:08 BP 130 / 80; Pulse 78; Resp 17; Temp 98; Pulse Ox 99% ; Weight 104.33 kg; Height 5 ft. ll1 5 in. ; Pain 8/10; 13:00 BP 128 / 68; Pulse 76; Resp 16; Pulse Ox 99% on R/A; cm10 11:08 Body Mass Index 38.27 (104.33 kg, 165.1 cm) ll1 11:08 Pain Scale: Adult ll1 MDM: 11:08 Patient medically screened. rt 13:01 Differential Diagnosis Dysuria, UTI, pyelo-. Data reviewed: vital signs, nurses notes, rt lab test result(s), radiologic studies. I considered the following discharge prescriptions or medication management in the emergency department Medications were administered in the Emergency Department. See MAR. Independent interpretation of the following test(s) in the Emergency Department CT Scan: My interpretation is No ureteral stone seen on interpretation of CT scan images. Care significantly affected by the following chronic conditions: Diabetes. Counseling: I had a detailed discussion with the patient and/or guardian regarding the historical points, exam findings, and any diagnostic results supporting the discharge/admit diagnosis, lab results, radiology results, the need for outpatient follow up, to return to the emergency department if symptoms worsen or persist or if there are any questions or concerns that arise at home. Response to treatment: the patient's symptoms have markedly improved after treatment. 12/31 11:14 Order name: CBC with Diff; Complete Time: 12:06 rt 12/31 11:14 Order name: CMP; Complete Time: 12:06 rt 12/31 11:14 Order name: Lipase; Complete Time: 12:06 rt 12/31 11:14 Order name: Test, Urine; Complete Time: 12:06 rt 12/31 11:14 Order name: Urinalysis w/ reflexes; Complete Time: 12:06 rt 12/31 12:16 Order name: Abdomen ; Complete Time: 12:46 EDMS 12/31 11:14 Order name: IV Saline Lock; Complete Time: 11:39 rt 12/31 11:14 Order name: Labs collected and sent; Complete Time: 11:39 rt Administered Medications: 11:57 Drug: NS 0.9% IV 1000 ml IV at 1 bolus Per protocol; 1000 mL bolus Route: IV; Rate: 1 iw bolus; Site: left antecubital; 13:21 Follow up: Response: No adverse reaction; IV Status: Completed infusion; IV Intake: cm10 500ml 11:57 Drug: Ondansetron IVP 4 mg IVP once; over 2 minutes Route: IVP; Site: left antecubital; iw 13:21 Follow up: Response: No adverse reaction cm10 11:57 Drug: Rocephin IV 2 grams IV at calculated rate once; Given slow IV push per pharmarcy iw instructions Route: IV; Rate: calculated rate; Site: left antecubital; 12:30 Follow up: Response: No adverse reaction; IV Status: Completed infusion; IV Intake: cm10 100ml 12:25 Drug: Ketorolac IVP 15 mg IVP once Route: IVP; Site: left antecubital; cm10 13:21 Follow up: Response: No adverse reaction cm10 Disposition Summary: 01/01/24 13:00 Discharge Ordered Notes: Location: Home rt Problem: new rt Symptoms: have improved rt Condition: Stable rt Diagnosis - Dysuria rt Followup: rt - With: Private Physician - When: 2 - 3 days - Reason: Discharge Instructions: - Discharge Summary Sheet rt - Dysuria rt Forms: - Medication Reconciliation Form rt - Antibiotic Education rt - Prescription Opioid Use rt - Patient Portal Instructions rt - Leadership Thank You Letter rt Prescriptions: - ondansetron 4 mg Oral Tablet,disintegrating - take 1 tablet ORAL route every 6 hours; 15 tablet; Refills: 0, Product rt Selection Permitted - cefpodoxime 200 mg Oral tablet - take 1 tablet ORAL route every 12 hours with food; 14 tablet; Refills: 0, rt Product Selection Permitted Signatures: Dispatcher [employer] EDSelena Phelan, RN YULI iw Jose Daniel Royal RN RN ll1 Nitin Overton MD MD rt Evy Ngo RN RN cm10 Corrections: (The following items were deleted from the chart) 11:15 11:15 CBC+H.LAB.BRZ ordered. EDMS EDMS 11:15 11:15 COMPREHENSIVE METABOLIC PANEL+C.LAB.BRZ ordered. EDMS EDMS 11:15 11:15 LIPASE+C.LAB.BRZ ordered. EDMS EDMS 11:15 11:15 Test, Urine+UC.LAB.BRZ ordered. EDMS EDMS 11:15 11:15 Urinalysis+U.LAB.BRZ ordered. EDMS EDMS 11:15 11:15 Abdomen Pelvis W Con+CT.RAD.BRZ ordered. EDMS EDMS
--- NOTE | 2024-01-01 13:00 | ER ---
Nurse's Notes [facility] Name: Tiana Manriquez Age: 48 yrs Sex: Female : 1975 Arrival Date: 01/01/2024 Time: 10:56 Bed 8 Private MD: Diagnosis: Dysuria Presentation: 12/31 11:08 Chief complaint: Patient states: Dysuria for 3 weeks. + nausea, fatigue, VÁZQUEZ, fever, ll1 abdomen and R sided back pain. Coronavirus screen: Client denies travel out of the [place] in the last 14 days. At this time, the client does not indicate any symptoms associated with coronavirus-19. Ebola Screen: Patient denies travel to an Ebola-affected area in the 21 days before illness onset. Initial Sepsis Screen: Does the patient meet any 2 criteria? No. Patient's initial sepsis screen is negative. Does the patient have a suspected source of infection? No. Patient's initial sepsis screen is negative. Risk Assessment: Do you want to hurt yourself or someone else? Patient reports no desire to harm self or others. Onset of symptoms was December 13, 2023. 11:08 Method Of Arrival: Ambulatory 1 11:08 Acuity: JUANIS 3 1 Triage Assessment: 11:08 General: Appears uncomfortable, Behavior is calm, cooperative, appropriate for age. ll1 General: Reports fatigue for. Pain: Complains of pain in abdomen Quality of pain is described as aching. GI: Reports lower abdominal pain, nausea. : Reports burning with urination. 11:08 Neuro: Reports headache weakness. ll1 HOUSEKEEPING AID: 13:23 unknown cm10 Historical: - Allergies: 11:01 PENICILLINS; ll1 - PMHx: 11:01 Diabetes - NIDDM; ll1 11:08 head injury 2021; ll1 - PSHx: 11:08 Tonsillectomy; ll1 - Immunization history:: Adult Immunizations up to date. - Infectious Disease History:: Denies. - Social history:: Smoking status: Patient denies any tobacco usage or history of. - Family history:: not pertinent. Screenin:15 [facility] ED Fall Risk Assessment (Adult) History of falling in the last 3 months, cm10 including since admission No falls in past 3 months (0 pts) Confusion or Disorientation No (0 pts) Intoxicated or Sedated No (0 pts) Impaired Gait No (0 pts) Mobility Assist Device Used No (0 pt) Altered Elimination No (0 pt) Score/Fall Risk Level 0 - 2 = Low Risk Oriented to surroundings, Maintained a safe environment, Hourly rounding (assess needs \T\ fall precautionary measures) done. Abuse screen: Denies threats or abuse. Denies injuries from another. Nutritional screening: No deficits noted. Tuberculosis screening: No symptoms or risk factors identified. Assessment: 12:15 General: Appears in no apparent distress. uncomfortable, Behavior is calm, cooperative. cm10 Pain: Complains of pain in abdomen. Neuro: No deficits noted. Level of Consciousness is awake, alert, obeys commands, Oriented to person, place, time, situation, Appropriate for age. Respiratory: No deficits noted. Airway is patent Respiratory effort is even, unlabored, Respiratory pattern is regular, symmetrical. Derm: No deficits noted. Skin is intact, Skin is pink, warm \T\ dry. Musculoskeletal: No deficits noted. Range of motion: intact in all extremities. Vital Signs: 11:08 BP 130 / 80; Pulse 78; Resp 17; Temp 98; Pulse Ox 99% ; Weight 104.33 kg; Height 5 ft. ll1 5 in. ; Pain 8/10; 13:00 BP 128 / 68; Pulse 76; Resp 16; Pulse Ox 99% on R/A; cm10 11:08 Body Mass Index 38.27 (104.33 kg, 165.1 cm) ll1 11:08 Pain Scale: Adult ll1 ED Course: 10:57 Patient arrived in ED. mr 10:58 Nitin Overton MD is Attending Physician. rt 11:01 Arm band placed on Patient placed in an exam room, on a stretcher. ll1 11:09 Selena Alas, RN is Primary Nurse. iw 11:09 Triage completed. ll1 11:39 Initial lab(s) drawn, by me, sent to lab. Inserted saline lock: 20 gauge in left iw antecubital area, using aseptic technique. Blood collected. Flushed with 10 mL NS. 12:15 Patient has correct armband on for positive identification. Provided Education on: ER cm10 process and procedures.. Pulse ox on. NIBP on. 12:15 No provider procedures requiring assistance completed. cm10 12:24 Abdomen In Process Unspecified. EDMS 13:19 IV discontinued, intact, bleeding controlled, No redness/swelling at site. Pressure me1 dressing applied. Administered Medications: 11:57 Drug: NS 0.9% IV 1000 ml IV at 1 bolus Per protocol; 1000 mL bolus Route: IV; Rate: 1 iw bolus; Site: left antecubital; 13:21 Follow up: Response: No adverse reaction; IV Status: Completed infusion; IV Intake: cm10 500ml 11:57 Drug: Ondansetron IVP 4 mg IVP once; over 2 minutes Route: IVP; Site: left antecubital; iw 13:21 Follow up: Response: No adverse reaction cm10 11:57 Drug: Rocephin IV 2 grams IV at calculated rate once; Given slow IV push per pharmarcy iw instructions Route: IV; Rate: calculated rate; Site: left antecubital; 12:30 Follow up: Response: No adverse reaction; IV Status: Completed infusion; IV Intake: cm10 100ml 12:25 Drug: Ketorolac IVP 15 mg IVP once Route: IVP; Site: left antecubital; cm10 13:21 Follow up: Response: No adverse reaction cm10 Medication: 12:15 VIS not applicable for this client. cm10 Intake: 12:30 IV: 100ml; Total: 100ml. cm10 13:21 IV: 500ml; Total: 600ml. cm10 Outcome: 13:00 Discharge ordered by . rt 13:23 Discharged to home ambulatory, cm10 13:23 Condition: good 13:23 Discharge instructions given to patient, Instructed on discharge instructions, follow up and referral plans. medication usage, Demonstrated understanding of instructions, follow-up care, medications, Prescriptions given X 2, 13:23 Patient left the ED. cm10 Signatures: Dispatcher [employer] EDMS Keiko Aponte, Reg Reg mr Selena Alas, YULI RN iw Jose Daniel Royal RN RN ll1 Nitin Overton MD MD rt Evy Ngo RN RN cm10 Swapna Amaya RN RN me1 Corrections: (The following items were deleted from the chart) 14:00 11:08 GI: Reports lower abdominal pain, ll1 ll1 14:00 11:08 General: Reports fatigue for ll1 ll1
[2024-01-01 13:55] VITALS: TEMP 98; O2SAT 99
[2024-01-01 14:01] VITALS: BP 128/68
== END 2024-01-01 13:23 | disposition home or self-care (01) ==
LOC: ER 10:56
DX: R30.0 Dysuria (principal)
CPT/HCPCS: 36415; 74176; 80053; 81001; 81025; 83690; 85025; 96361; 96365; 96375; 99284; J0696; J2405; J7030